=== PATIENT | female | born 1990 | race Caucasian/White ===

== ENCOUNTER → 2016-11-28 | Outpatient (CLI) | payer BC | END | disposition home or self-care (01) | LOC: LAB.O 11:51 | PROVIDERS: ATTEND Emergency Medicine | DX: Z13.220 Encounter for screening for lipoid disorders (principal) ==

== ENCOUNTER → 2017-04-21 | Outpatient (CLI) | payer BC | END | disposition home or self-care (01) | LOC: LAB.O 11:50 | PROVIDERS: ATTEND Emergency Medicine | DX: E78.5 Hyperlipidemia, unspecified (principal) ==

== ENCOUNTER 2017-07-02 09:52 | Emergency (ER) | payer BC ==
--- NOTE | 2017-07-02 10:34 | ED.PDOC ---
History of Present Illness - General Chief Complaint: Cardiovascular Problem Stated Complaint: heart racing Time Seen by Provider: 07/02/17 10:21 Source: patient Exam Limitations: no limitations - History of Present Illness Initial Comments: Sana Dominique 27 y/o female stated that she was sitting on her car on the parking lot this am and she had sudden onset of feeling that her heart was racing felt dizzy and nauseous,no chest pains.No previous episodes in the past. Timing/Duration: 1-3 hours Associated Symptoms: other - see hpi Allergies/Adverse Reactions: Allergies NO KNOWN ALLERGY Allergy (Verified 07/02/17 10:07) Home Medications: Ambulatory Orders Citalopram Hydrobromide [Celexa] 20 mg PO DAILY 09/24/14 Famotidine 20 mg PO DAILY #30 tab 03/19/16 Diclofenac [Zorvolex] 35 mg PO Q12HRS #20 cap 09/24/16 Tramadol HCl 50 mg PO Q6HRS #20 tab 09/24/16 Review of Systems - Review of Systems Constitutional: States: no symptoms reported EENTM: States: no symptoms reported Respiratory: States: no symptoms reported Cardiology: States: see HPI Gastrointestinal/Abdominal: States: no symptoms reported Genitourinary: States: no symptoms reported Past Medical History (General) - Patient Medical History Hx Seizures: No Hx Stroke: No Hx Dementia: No Hx Asthma: No Hx of COPD: No Hx Cardiac Disorders: No Hx Congestive Heart Failure: No Hx Pacemaker: No Hx Hypertension: No Hx Thyroid Disease: No Hx Diabetes: No Hx Gastroesophageal Reflux: No Hx Renal Disease: No Hx of HIV: No Hx MRSA: No Surgical History: no surgical history - Vaccination History Hx Influenza Vaccination: No Hx Pneumococcal Vaccination: No - Social History Hx Tobacco Use: Yes Hx Alcohol Use: Yes - socially Hx Depression: Yes - Female History Patient is a Female of Child Bearing Age (10 -59 yrs old): Yes Hx Last Menstrual Period: 07/02/17 Patient : No Family Medical History - Family History Father Family History: No Known Living Status: Still Living Hx Family Hypertension: Yes - several family members Hx Family Diabetes: Yes - several family members Hx Family;Other: Several family members have had kidney stones. Physical Exam - Physical Exam General Appearance: Alert, Anxious, No apparent distress Eye Exam: bilateral normal Ears, Nose, Throat: hearing grossly normal, normal ENT inspection Neck: non-tender, full range of motion, supple Respiratory: chest non-tender, lungs clear, normal breath sounds Cardiovascular/Chest: normal peripheral pulses, regular rate, rhythm, no gallop , no murmur Peripheral Pulses: radial,right: 1+, radial,left: 1+ Gastrointestinal/Abdominal: normal bowel sounds, non tender, soft, no organomegaly Back Exam: no vertebral tenderness Extremity: no pedal edema, no calf tenderness Neurologic: alert, normal mood/affect, oriented x 3 Skin Exam: normal color, warm/dry Lymphatic: no adenopathy Progress - Progress Progress: 07/02/17 10:37 Vital Signs - 8 hr 07/02/17 09:58 Temperature 98.0 F Pulse Rate [ 93 H pulse ox] Respiratory 20 Rate Blood Pressure 137/94 [Left Arm] O2 Sat by Pulse 96 Oximetry 07/02/17 12:08 Vital Signs - 8 hr 07/02/17 09:58 Temperature 98.0 F Pulse Rate [ 93 H pulse ox] Respiratory 20 Rate Blood Pressure 137/94 [Left Arm] O2 Sat by Pulse 96 Oximetry - Results/Orders Results/Orders: Laboratory Tests 07/02/17 07/02/17 07/02/17 10:35 10:35 10:35 WBC 7.8 RBC 5.00 Hgb 14.6 Hct 42.9 MCV 85.8 MCH 29.2 MCHC 34.0 RDW 12.9 Plt Count 322 MPV 8.4 Absolute Neuts (auto) 4.60 Absolute Lymphs (auto) 2.50 Absolute Monos (auto) 0.50 Absolute Eos (auto) 0.10 Absolute Basos (auto) 0.00 Neutrophils % 59.4 Lymphocytes % 32.4 Monocytes % 6.5 Eosinophils % 1.2 Basophils % 0.5 D-Dimer, Quantitative < 200 Sodium 138 Potassium 4.3 Chloride 105 Carbon Dioxide 26 Anion Gap 11.3 L BUN 10 Creatinine 0.52 L BUN/Creatinine Ratio 19.2 Random Glucose 121 H Serum Osmolality 276.0 Calcium 9.3 Total Bilirubin 0.2 AST 43 H ALT 61 H Alkaline Phosphatase 82 Troponin I Serum Total Protein 7.9 Albumin 4.2 Globulin 3.7 H Albumin/Globulin Ratio 1.1 07/02/17 10:35 WBC RBC Hgb Hct MCV MCH MCHC RDW Plt Count MPV Absolute Neuts (auto) Absolute Lymphs (auto) Absolute Monos (auto) Absolute Eos (auto) Absolute Basos (auto) Neutrophils % Lymphocytes % Monocytes % Eosinophils % Basophils % D-Dimer, Quantitative Sodium Potassium Chloride Carbon Dioxide Anion Gap BUN Creatinine BUN/Creatinine Ratio Random Glucose Serum Osmolality Calcium Total Bilirubin AST ALT Alkaline Phosphatase Troponin I < 0.02 Serum Total Protein Albumin Globulin Albumin/Globulin Ratio - EKG/XRAY/CT EKG: Sinus, nonspecific ST T wave Chg Comments: HR 75 Departure - Departure Clinical Impression: Heart palpitations Time of Disposition: 12:14 Disposition: Discharge to Home or Self Care Condition: Good Departure Forms: ED Discharge - Pt. Copy, Patient Portal Self Enrollment Instructions: DI for Palpitations Referrals: MAYRA PHAM [Primary Care Provider] - 1-2 Weeks Home Medications: Ambulatory Orders Citalopram Hydrobromide [Celexa] 20 mg PO DAILY 09/24/14 Famotidine 20 mg PO DAILY #30 tab 03/19/16 Diclofenac [Zorvolex] 35 mg PO Q12HRS #20 cap 09/24/16 Tramadol HCl 50 mg PO Q6HRS #20 tab 09/24/16 Additional Instructions: Follow up with primary md 07/03/2017 patient to call for appointment
--- NOTE | 2017-07-02 10:48 | RAD ---
EXAM DESCRIPTION: Chest,2 Views CLINICAL HISTORY: 27 years,Female,palpitations COMPARISON: March 18 FINDINGS: There are no consolidations. No effusions. No pneumothoraces. No nodules. Bony elements unremarkable for age. IMPRESSION: Unremarkable chest for age stable Electronically signed by: Usman Cope MD 07/02/2017 10:47 AM CDT
[2017-07-02 12:15] VITALS: TEMP 97.6
[2017-07-02 12:24] VITALS: BP 113/80; O2SAT 98
== END 2017-07-02 12:23 | disposition home or self-care (01) ==
LOC: ER 09:52
DX: R00.2 Palpitations (principal); Z87.891 Personal history of nicotine dependence

== ENCOUNTER 2017-09-04 03:45 | Emergency (ER) | payer BC ==
[2017-09-04 03:59] VITALS: TEMP 97.3
--- NOTE | 2017-09-04 04:06 | ED.PDOC ---
History of Present Illness - General Chief Complaint: ENT Problem Stated Complaint: sore throat, bilateral ear pain, coughing Time Seen by Provider: 09/04/17 03:59 Source: patient, RN notes reviewed, Vital Signs reviewed Exam Limitations: no limitations - History of Present Illness Initial Comments: Patient presents to the ER with c/o sore throat X 1 weeks. Reports it is just getting worse and woke her from sleep. Unknown fever but + chills. Hurts to swallow. + cough. Timing/Duration: gradual, last week Severity: severe EENT Location: throat Prearrival Treatment: over the counter meds Improving Factors: nothing Worsening Factors: other - swallowing Associated Symptoms: cough, sinus infection Allergies/Adverse Reactions: Allergies NO KNOWN ALLERGY Allergy (Verified 09/04/17 03:59) Home Medications: Ambulatory Orders Amoxicillin [Amoxil] 500 mg PO TID #30 cap 09/04/17 Review of Systems - Review of Systems Constitutional: States: chills, malaise. Denies: fever EENTM: States: see HPI, ear pain, throat pain. Denies: nose congestion Respiratory: States: see HPI, cough. Denies: short of breath Cardiology: States: no symptoms reported Gastrointestinal/Abdominal: States: no symptoms reported Musculoskeletal: States: no symptoms reported Skin: States: no symptoms reported Neurological: States: no symptoms reported All other Systems: No Change from Baseline Past Medical History (General) - Patient Medical History Hx Seizures: No Hx Stroke: No Hx Dementia: No Hx Asthma: No Hx of COPD: No Hx Cardiac Disorders: No Hx Congestive Heart Failure: No Hx Pacemaker: No Hx Hypertension: No Hx Thyroid Disease: No Hx Diabetes: No Hx Gastroesophageal Reflux: No Hx Renal Disease: No Hx of HIV: No Hx MRSA: No Surgical History: no surgical history - Vaccination History Hx Tetanus, Diphtheria Vaccination: No Hx Influenza Vaccination: No Hx Pneumococcal Vaccination: No - Social History Hx Tobacco Use: Yes Hx Chewing Tobacco Use: No Hx Alcohol Use: Yes - socially Hx Substance Use: No Hx Substance Use Treatment: No Hx Depression: Yes Feels Threatened In Home Enviroment: No Feels Threatened In a Relationship: No Hx Physical Abuse: No Hx Emotional Abuse: No Hx Suspected Abuse: No - Female History Hx Last Menstrual Period: 07/02/17 Patient : No Family Medical History - Family History Father Family History: No Known Living Status: Still Living Hx Family Hypertension: Yes - several family members Hx Family Diabetes: Yes - several family members Hx Family;Other: Several family members have had kidney stones. Physical Exam - Physical Exam General Appearance: Alert, Comfortable, No apparent distress, Obese, Well Developed, Well Groomed, Well Hydrated, Well Nourished Eye Exam: bilateral normal Ear Exam: bilateral ear: auricle normal, canal normal, TM normal Nasal Exam: normal inspection Throat Exam: normal mouth inspection, pharynx normal Neck: full range of motion, supple, normal inspection Cardiovascular/Respiratory: regular rate, rhythm, no M/R/G, normal breath sounds , no respiratory distress Neurologic: no motor/sensory deficits, alert, normal mood/affect Skin Exam: normal color, warm/dry Comments: Vital Signs 09/04/17 03:50 Temperature 97.3 F L Pulse Rate [ 83 monitor] Respiratory 16 Rate Blood Pressure 133/81 [Left Arm] O2 Sat by Pulse 97 Oximetry Progress - Progress Progress: 09/04/17 04:27 Will give Solu-Medrol 125mg IM and Amoxicillin 875mg PO - Results/Orders Results/Orders: Laboratory Tests 09/04/17 04:10 Group A Strep DNA Negative Departure - Departure Clinical Impression: Pharyngitis Qualifiers: Pharyngitis/tonsillitis etiology: unspecified etiology Qualified Code(s): J02.9 - Acute pharyngitis, unspecified Time of Disposition: 04:28 Disposition: Discharge to Home or Self Care Condition: Good Departure Forms: ED Discharge - Pt. Copy, Patient Portal Self Enrollment Instructions: DI for Pharyngitis/Tonsillopharyngitis -- Adult Diet: resume usual diet Activity: increase activity as tolerated Referrals: MAYRA PHAM [Primary Care Provider] - 1-2 Weeks Prescriptions: Amoxicillin [Amoxil] 500 mg PO TID #30 cap Home Medications: Ambulatory Orders Amoxicillin [Amoxil] 500 mg PO TID #30 cap 09/04/17
[2017-09-04] MEDS ORDERED: AMOXICILLIN TRIHYDRATE 875 MG TAB PO ONE (04:27)
[2017-09-04] MEDS ORDERED: methylPREDNISolone SODIUM SUC 125 MG/2 ML VIAL IM ONE (04:27)
[2017-09-04] MEDS ORDERED: AMOXICILLIN TRIHYDRATE 500 MG PO ONE (04:30)
[2017-09-04 04:59] VITALS: BP 129/78; O2SAT 98
== END 2017-09-04 04:59 | disposition home or self-care (01) ==
LOC: ER 03:45
DX: J02.9 Acute pharyngitis, unspecified (principal); Z87.891 Personal history of nicotine dependence
CPT/HCPCS: 87070; 87651; J2930

== ENCOUNTER 2017-12-26 10:31 | Emergency (ER) | payer BC ==
--- NOTE | 2017-12-26 10:40 | ED.PDOC ---
History of Present Illness - General Chief Complaint: Abdominal Pain Stated Complaint: lower abdominal pain Time Seen by Provider: 12/26/17 10:39 Information Source: patient Exam Limitations: no limitations - History of Present Illness Initial Comments: Sana Dominique 27 y/o female stated woke up tis morning with stabbing lower abdominal pain non radiating aggravated by trying to have bowel movement this am.No diarrhea no constipation no n/v.Stated got worse decided to come to er.No vaginal bleeding had short episode of sob but better .Done home test yesterday negative since no periods for a monthy. Abdominal Pain Onset Location: suprapubic Pain Radiation: no radiation Quality: steady, stabbing Timing/Duration: 7-24 hours Improving Factors: nothing Worsening Factors: nothing Associated Symptoms: denies symptoms Review of Systems - Review of Systems Constitutional: States: no symptoms reported EENTM: States: no symptoms reported Respiratory: States: no symptoms reported Cardiology: States: no symptoms reported Gastrointestinal/Abdominal: States: see HPI Genitourinary: States: no symptoms reported All other Systems: Reviewed and Negative, No Change from Baseline Past Medical History (General) - Patient Medical History Hx Seizures: No Hx Stroke: No Hx Dementia: No Hx Asthma: No Hx of COPD: No Hx Cardiac Disorders: No Hx Congestive Heart Failure: No Hx Pacemaker: No Hx Hypertension: No Hx Thyroid Disease: No Hx Diabetes: No Hx Gastroesophageal Reflux: No Hx Renal Disease: No Hx of HIV: No Hx MRSA: No Surgical History: no surgical history - Vaccination History Hx Tetanus, Diphtheria Vaccination: No Hx Influenza Vaccination: No Hx Pneumococcal Vaccination: No - Social History Hx Tobacco Use: Yes Hx Chewing Tobacco Use: No Hx Alcohol Use: Yes - socially Hx Substance Use: No Hx Substance Use Treatment: No Hx Depression: Yes Hx Physical Abuse: No Hx Emotional Abuse: No Hx Suspected Abuse: No - Female History Patient is a Female of Child Bearing Age (10 -59 yrs old): Yes Hx Last Menstrual Period: 11/24/17 Patient : No Family Medical History - Family History Father Family History: No Known Living Status: Still Living Hx Family Hypertension: Yes - several family members Hx Family Diabetes: Yes - several family members Hx Family;Other: Several family members have had kidney stones. Physical Exam - Physical Exam General Appearance: Alert, Comfortable, No apparent distress Eyes, Ears, Nose, Throat Exam: normal ENT inspection Neck: non-tender, supple Respiratory: chest non-tender, lungs clear, normal breath sounds Cardiovascular/Chest: normal peripheral pulses, regular rate, rhythm, no murmur Peripheral Pulses: No deficit Gastrointestinal/Abdominal: soft, tenderness - lower abdomen no peritoneal signs Back Exam: no CVA tenderness, no vertebral tenderness Extremity: no pedal edema, no calf tenderness Neurologic: alert, oriented x 3 Skin Exam: normal color, warm/dry Progress - Progress Progress: 12/26/17 10:56 Vital Signs - 24 hr 12/26/17 10:37 Temperature 97.5 F L Pulse Rate [ 91 H left brachial] Respiratory 24 Rate Blood Pressure 140/84 [left brachial] O2 Sat by Pulse 94 L Oximetry - Results/Orders Results/Orders: 12/26/17 10:41 IV Care:Saline Lock per Protoc QSHIFT 12/26/17 11:34 Hold Metformin x 48Hrs [id number] Laboratory Results - last 24 hr 12/26/17 12/26/17 12/26/17 11:03 11:06 11:06 WBC 10.5 RBC 4.82 Hgb 14.2 Hct 41.1 MCV 85.2 MCH 29.5 MCHC 34.6 RDW 12.6 Plt Count 343 MPV 8.5 Absolute Neuts (auto) 6.70 Absolute Lymphs (auto) 3.00 Absolute Monos (auto) 0.70 Absolute Eos (auto) 0.10 Absolute Basos (auto) 0.10 Neutrophils % 63.7 Lymphocytes % 28.1 Monocytes % 6.4 Eosinophils % 1.2 Basophils % 0.6 Sodium 133 L Potassium 4.2 Chloride 103 Carbon Dioxide 21 Anion Gap 13.2 BUN 14 Creatinine 0.50 L BUN/Creatinine Ratio 28.0 H Random Glucose 120 H Serum Osmolality 268.0 L Calcium 9.5 Total Bilirubin 0.7 AST 23 ALT 38 Alkaline Phosphatase 91 Serum Total Protein 7.5 Albumin 3.9 Globulin 3.6 H Albumin/Globulin Ratio 1.1 Serum HCG, Qual Urine Color Yellow Urine Appearance Clear Urine pH 5.5 Ur Specific [place] 1.020 Urine Protein Negative Urine Glucose (UA) Negative Urine Ketones Negative Urine Blood Negative Urine Nitrite Negative Urine Bilirubin Negative Urine Urobilinogen 0.2 Ur Leukocyte Esterase Negative Urine RBC 1-3 Urine WBC 1-3 Ur Epithelial Cells 1-3 Urine Bacteria 0 12/26/17 11:06 WBC RBC Hgb Hct MCV MCH MCHC RDW Plt Count MPV Absolute Neuts (auto) Absolute Lymphs (auto) Absolute Monos (auto) Absolute Eos (auto) Absolute Basos (auto) Neutrophils % Lymphocytes % Monocytes % Eosinophils % Basophils % Sodium Potassium Chloride Carbon Dioxide Anion Gap BUN Creatinine BUN/Creatinine Ratio Random Glucose Serum Osmolality Calcium Total Bilirubin AST ALT Alkaline Phosphatase Serum Total Protein Albumin Globulin Albumin/Globulin Ratio Serum HCG, Qual Negative Urine Color Urine Appearance Urine pH Ur Specific [place] Urine Protein Urine Glucose (UA) Urine Ketones Urine Blood Urine Nitrite Urine Bilirubin Urine Urobilinogen Ur Leukocyte Esterase Urine RBC Urine WBC Ur Epithelial Cells Urine Bacteria - EKG/XRAY/CT CT Ordered: Yes - abd /pelvis-no acute abnormality Departure - Departure Clinical Impression: Abdominal pain Qualifiers: Abdominal location: lower abdomen, unspecified Qualified Code(s): R10.30 - Lower abdominal pain, unspecified Time of Disposition: 12:19 Disposition: Discharge to Home or Self Care Condition: Good Departure Forms: ED Discharge - Pt. Copy, Patient Portal Self Enrollment Instructions: DI for Abdominal Pain-Adult Referrals: MAYRA PHAM [Primary Care Provider] - 1-2 Weeks Home Medications: Ambulatory Orders Cholesterol Med 1 ea PO DAILY 12/26/17 Norgestimate-Ethinyl Estradiol [Tri-Sprintec 0.18/0.215/0.25 mg-35 Mcg] 1 each PO DAILY 12/26/17 Additional Instructions: Follow up with primary Md 29 December 2017;May take ALEVE 1-2 tablets am/pm for pain as needed
[2017-12-26] MEDS ORDERED: LACTATED RINGERS 1,000 ML IVS ONE (10:41)
--- NOTE | 2017-12-26 12:07 | CT ---
EXAM DESCRIPTION: CT abdomen and pelvis with contrast CLINICAL HISTORY: Abdomen pain COMPARISON: None Available. TECHNIQUE: Spiral CT with multiplanar reformatted images. Intravenous iodinated nonionic contrast This exam was performed according to our departmental dose-optimization program, which includes automated exposure control, adjustment of the mA and/or kV according to patient size and/or use of iterative reconstruction technique. FINDINGS: There is minimal free fluid lower right paracolic gutter adjacent to the cecum. The appendix extends medially from the cecum best seen on coronal reformat image 73 through 75. This courses towards the right adnexa. The appendix is nondistended and there is no inflammation immediately around the appendix The appearance of the adnexa bilaterally is consistent with physiologic change with minimal adjacent fluid. No abnormality of the uterus There is no mass lesion or inflammatory process seen in the stomach, small or large intestine Visualized lung bases are clear. Heart size normal Mild diffuse fatty infiltration of the liver. No focal abnormality. Gallbladder normal. No biliary duct dilation Spleen, pancreas, adrenal glands and kidneys are normal No bony abnormality IMPRESSION: No diagnostic evidence of appendicitis. The visualized appendix is normal in caliber without surrounding inflammation There is a small volume of fluid adjacent to the cecum in the lower right paracolic gutter/right adnexa which may be physiologic related to the right ovary, possibly a cyst or follicle rupture Electronically signed by: Mono Alcantar MD 12/26/2017 12:06 PM CDT
[2017-12-26] MEDS ORDERED: PROMETHAZINE HCL INJ 25 MG/ML VIAL IM ONE (12:20)
[2017-12-26] MEDS ORDERED: MORPHINE SULFATE INJ 10 MG/ML VIAL IV ONE (12:20)
[2017-12-26 13:33] VITALS: BP 128/78; TEMP 97; O2SAT 98
== END 2017-12-26 13:45 | disposition home or self-care (01) ==
LOC: ER 10:31
DX: R10.30 Lower abdominal pain, unspecified (principal)
CPT/HCPCS: 36416; 74177; 80053; 81001; 84703; 85025; J2270; J2550; J7120

== ENCOUNTER 2018-01-10 19:16 | Emergency (ER) | payer BC ==
[2018-01-10 19:20] VITALS: TEMP 99.6
--- NOTE | 2018-01-10 20:30 | ED.PDOC ---
History of Present Illness - General Chief Complaint: Respiratory Problem Stated Complaint: Shortness of breath Time Seen by Provider: 01/10/18 19:33 Source: patient Exam Limitations: no limitations - History of Present Illness Initial Comments: he patient is a 27-year-old female presenting to the emergency room secondary to acute onset shortness of breath. She was making Easter eggs when this developed. She has recently been hospitalized with her primary care doctor and diagnosed with anxiety. Apparently quite a few studies have been done on her at her primary care doctor's Hospital and workup including a cardiac workup with echocardiogram and she thinks a CT scan. She thinks that she wore a heart monitor for a period of time. She was recently started on Xanax and BuSpar. She reports that most of her episodes of shortness of breath occur when she goes to lie back. She does have a long-standing history of reflux. No vomiting. No history of asthma. No chest pain. Timing/Duration: 1/2 hour Severity: moderate Improving Factors: nothing Worsening Factors: nothing Associated Symptoms: denies symptoms Allergies/Adverse Reactions: Allergies NO KNOWN ALLERGY Allergy (Verified 12/26/17 10:48) Home Medications: Ambulatory Orders Cholesterol Med 1 ea PO DAILY 12/26/17 Norgestimate-Ethinyl Estradiol [Tri-Sprintec 0.18/0.215/0.25 mg-35 Mcg] 1 each PO DAILY 12/26/17 Sucralfate Tab [Carafate Tab] 1 gm PO QID #120 tab 01/10/18 Review of Systems - Review of Systems Constitutional: States: no symptoms reported EENTM: States: no symptoms reported Respiratory: States: see HPI Cardiology: States: no symptoms reported Gastrointestinal/Abdominal: States: no symptoms reported Genitourinary: States: no symptoms reported Musculoskeletal: States: no symptoms reported Skin: States: no symptoms reported Neurological: States: anxiety Endocrine: States: no symptoms reported All other Systems: No Change from Baseline Past Medical History (General) - Patient Medical History Hx Seizures: No Hx Stroke: No Hx Dementia: No Hx Asthma: No Hx of COPD: No Hx Cardiac Disorders: Yes - Hypercholesterolemia Hx Congestive Heart Failure: No Hx Pacemaker: No Hx Hypertension: No Hx Thyroid Disease: No Hx Diabetes: No Hx Gastroesophageal Reflux: No Hx Renal Disease: No Hx of HIV: No Hx MRSA: No - Vaccination History Hx Tetanus, Diphtheria Vaccination: No Hx Influenza Vaccination: No Hx Pneumococcal Vaccination: No - Social History Hx Tobacco Use: Yes Hx Chewing Tobacco Use: No Hx Alcohol Use: Yes - socially Hx Substance Use: No Hx Substance Use Treatment: No Hx Depression: Yes Hx Physical Abuse: No Hx Emotional Abuse: No Hx Suspected Abuse: No - Female History Patient is a Female of Child Bearing Age (10 -59 yrs old): Yes Hx Last Menstrual Period: 11/24/17 Patient : No Family Medical History - Family History Father Family History: No Known Living Status: Still Living Hx Family Hypertension: Yes - several family members Hx Family Diabetes: Yes - several family members Hx Family;Other: Several family members have had kidney stones. Physical Exam - Physical Exam General Appearance: Alert, Anxious Eye Exam: bilateral normal Ears, Nose, Throat: hearing grossly normal, normal ENT inspection, normal pharynx Neck: full range of motion, supple Respiratory: lungs clear, normal breath sounds, no respiratory distress, no accessory muscle use Cardiovascular/Chest: normal peripheral pulses, regular rate, rhythm, no edema Peripheral Pulses: radial,right: 2+, radial,left: 2+, dorsalis pedis,right: 2+, dorsalis pedis,left: 2+ Gastrointestinal/Abdominal: non tender, soft Rectal Exam: deferred Back Exam: normal inspection, no CVA tenderness Extremity: normal range of motion, non-tender, normal inspection, no pedal edema , normal capillary refill 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 She did take a Xanax before coming up here and she has improved in a timeframe consistent with treatment of an anxiety attack. She has apparently already undergone a fairly extensive workup with her primary care doctor, the details of which I do not have. given the description of some of her attacks it may be beneficial for her to see gastroenterology for workup of possible esophageal pathology including dysmotility or Zenker's diverticulum. The patient should follow-up with her primary care doctor in 2-3 days for reevaluation. In the short-term I'm going to place her on Carafate 4 times daily. ER warnings were given. - Results/Orders Results/Orders: 01/10/18 19:35 Telemetry .CONTINUOUS Laboratory Results - last 24 hr 01/10/18 01/10/18 01/10/18 19:44 19:44 19:44 WBC 10.3 RBC 4.69 Hgb 13.8 Hct 40.1 MCV 85.5 MCH 29.4 MCHC 34.4 RDW 12.6 Plt Count 353 MPV 8.5 Absolute Neuts (auto) 6.40 Absolute Lymphs (auto) 2.80 Absolute Monos (auto) 0.90 H Absolute Eos (auto) 0.10 Absolute Basos (auto) 0.00 Neutrophils % 62.2 Lymphocytes % 27.5 Monocytes % 9.0 Eosinophils % 0.9 L Basophils % 0.4 D-Dimer, Quantitative < 200 Sodium 141 Potassium 3.9 Chloride 110 Carbon Dioxide 24 Anion Gap 10.9 L BUN 11 Creatinine 0.61 BUN/Creatinine Ratio 18.0 Random Glucose 110 H Serum Osmolality 281.3 Calcium 9.6 Magnesium 1.9 Total Bilirubin 0.4 AST 56 H ALT 108 H Alkaline Phosphatase 91 Creatine Kinase 62 CK-MB (CK-2) 0.8 CK-MB (CK-2) % Not Reportable Troponin I < 0.02 B-Natriuretic Peptide < 5.0 Serum Total Protein 7.5 Albumin 4.3 Globulin 3.2 Albumin/Globulin Ratio 1.3 TSH 1.92 Serum HCG, Qual 01/10/18 19:44 WBC RBC Hgb Hct MCV MCH MCHC RDW Plt Count MPV Absolute Neuts (auto) Absolute Lymphs (auto) Absolute Monos (auto) Absolute Eos (auto) Absolute Basos (auto) Neutrophils % Lymphocytes % Monocytes % Eosinophils % Basophils % D-Dimer, Quantitative Sodium Potassium Chloride Carbon Dioxide Anion Gap BUN Creatinine BUN/Creatinine Ratio Random Glucose Serum Osmolality Calcium Magnesium Total Bilirubin AST ALT Alkaline Phosphatase Creatine Kinase CK-MB (CK-2) CK-MB (CK-2) % Troponin I B-Natriuretic Peptide Serum Total Protein Albumin Globulin Albumin/Globulin Ratio TSH Serum HCG, Qual Negative Departure - Departure Clinical Impression: Anxiety attack Gastroesophageal reflux disease Qualifiers: Esophagitis presence: esophagitis presence not specified Qualified Code(s): K21.9 - Gastro-esophageal reflux disease without esophagitis Disposition: Discharge to Home or Self Care Condition: Fair Departure Forms: ED Discharge - Pt. Copy, Patient Portal Self Enrollment Instructions: Anxiety and Panic Attacks (Alternative Therapy) Diet: bland diet Activity: increase activity as tolerated Referrals: MAYRA PHAM [Primary Care Provider] - 1-2 Weeks Prescriptions: Sucralfate Tab [Carafate Tab] 1 gm PO QID #120 tab Home Medications: Ambulatory Orders Cholesterol Med 1 ea PO DAILY 12/26/17 Norgestimate-Ethinyl Estradiol [Tri-Sprintec 0.18/0.215/0.25 mg-35 Mcg] 1 each PO DAILY 12/26/17 Sucralfate Tab [Carafate Tab] 1 gm PO QID #120 tab 01/10/18 Additional Instructions: the patient is a 27-year-old female presenting to the emergency room secondary to recurrent episodes of acute onset shortness of breath. She did take a Xanax before coming up here and she has improved in a timeframe consistent with treatment of an anxiety attack. She has apparently already undergone a fairly extensive workup with her primary care doctor, the details of which I do not have. given the description of some of her attacks it may be beneficial for her to see gastroenterology for workup of possible esophageal pathology including dysmotility or Zenker's diverticulum. The patient should follow-up with her primary care doctor in 2-3 days for reevaluation. In the short-term I'm going to place her on Carafate 4 times daily As she does definitely have symptomatic reflux issues. ER warnings were given.
[2018-01-10 20:50] VITALS: BP 128/84; O2SAT 99
== END 2018-01-10 20:51 | disposition home or self-care (01) ==
LOC: ER 19:16
DX: F41.0 Panic disorder [episodic paroxysmal anxiety] (principal); K21.9 Gastro-esophageal reflux disease without esophagitis; E78.00 Pure hypercholesterolemia, unspecified

== ENCOUNTER 2019-08-03 09:00 | Emergency (ER) | payer BC ==
--- NOTE | 2019-08-03 09:18 | ED.PDOC ---
History of Present Illness - General Chief Complaint: Respiratory Problem Stated Complaint: cough,fever,dizziness Time Seen by Provider: 08/03/19 09:06 - History of Present Illness Comments: 29 yo F PMH HTN Anxiety/Depression (Denies hallucinations SI/HI without suicide plan) presents to ED c/o cough sore throat and nausea without vomiting with home sick contacts of son and Mother who is at bedside x 1 week. Reports fever chills denies vomiting diarrhea chest pain sob diaphoresis. Symptoms are disturbing rest and appetite no change in bowel or bladder. Has PMD Dr. Reyna for follow up denies smoking admits very occasional drinking admits FH HTN DM no other c/o today. Allergies/Adverse Reactions: Allergies NO KNOWN ALLERGY Allergy (Verified 12/26/17 10:48) Home Medications: Ambulatory Orders Acetaminophen [Tylenol] 650 mg PO Q6H PRN #30 tab 08/03/19 Amoxicillin & Pot Clavulanate [Augmentin Tab] 875 mg PO BID 10 Days #20 tab 08/03/19 Hydrochlorothiazide 25 mg PO DAILY 08/03/19 Ibuprofen 600 mg PO Q6H PRN #20 tab 08/03/19 Norgestimate-Ethinyl Estradiol [Tri-Sprintec] 1 tab PO DAILY 08/03/19 Phentermine HCl 37.5 mg PO DAILY 08/03/19 Prednisone 40 mg PO DAILY 5 Days #10 tab 08/03/19 Sertraline HCl 50 mg PO DAILY 08/03/19 Review of Systems - Review of Systems Constitutional: States: chills, fever EENTM: States: throat pain Respiratory: States: cough Cardiology: States: no symptoms reported Gastrointestinal/Abdominal: States: nausea Genitourinary: States: no symptoms reported Musculoskeletal: States: no symptoms reported Skin: States: no symptoms reported Neurological: States: no symptoms reported Endocrine: States: no symptoms reported Hematologic/Lymphatic: States: no symptoms reported All other Systems: Reviewed and Negative Past Medical History (General) - Patient Medical History Hx Seizures: No Hx Stroke: No Hx Dementia: No Hx Asthma: No Hx of COPD: No Hx Cardiac Disorders: Yes - Hypercholesterolemia Hx Congestive Heart Failure: No Hx Pacemaker: No Hx Hypertension: No Hx Thyroid Disease: No Hx Diabetes: No Hx Gastroesophageal Reflux: No Hx Renal Disease: No Hx of HIV: No Hx MRSA: No - Vaccination History Hx Tetanus, Diphtheria Vaccination: No Hx Influenza Vaccination: No Hx Pneumococcal Vaccination: No - Social History Hx Tobacco Use: Yes Hx Chewing Tobacco Use: No Hx Alcohol Use: Yes - socially Hx Substance Use: No Hx Substance Use Treatment: No Hx Depression: Yes Hx Physical Abuse: No Hx Emotional Abuse: No Hx Suspected Abuse: No - Female History Hx Last Menstrual Period: 11/24/17 Patient : No Family Medical History - Family History Father Family History: No Known Living Status: Still Living Hx Family Hypertension: Yes - several family members Hx Family Diabetes: Yes - several family members Hx Family;Other: Several family members have had kidney stones. 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 Skin Exam: normal color Progress - Progress Progress: 08/03/19 09:21 A/P-Pharyngitis Cough URI Right Knee Pain-IV Bolus tylenol decadron duoneb flu strep swabs cxr cbc cmp lipase upreg if unremarkable d/c follow up pcp referral tylenol ibuprofen prednisone augmentin for the pharyngitis 08/03/19 09:23 - Results/Orders Results/Orders: Laboratory Tests 08/03/19 08/03/19 08/03/19 09:20 09:30 09:30 WBC 6.7 RBC 4.83 Hgb 14.2 Hct 40.8 MCV 84.4 MCH 29.4 MCHC 34.8 RDW 13.2 Plt Count 262 MPV 8.8 Absolute Neuts (auto) 3.50 Absolute Lymphs (auto) 2.00 Absolute Monos (auto) 0.80 Absolute Eos (auto) 0.30 Absolute Basos (auto) 0.00 Neutrophils % 52.5 Lymphocytes % 29.7 Monocytes % 12.2 H Eosinophils % 4.9 Basophils % 0.7 Sodium 136 Potassium 3.6 Chloride 100 L Carbon Dioxide 20 L Anion Gap 19.6 H BUN 15 Creatinine 0.61 BUN/Creatinine Ratio 24.6 H Random Glucose 101 Serum Osmolality 272.9 L Calcium 8.8 Total Bilirubin 0.5 AST 31 ALT 33 Alkaline Phosphatase 78 Serum Total Protein 7.9 Albumin 4.0 Globulin 3.9 H Albumin/Globulin Ratio 1.0 L Lipase 36 Serum HCG, Qual Negative Group A Strep Rapid 08/03/19 09:30 WBC RBC Hgb Hct MCV MCH MCHC RDW Plt Count MPV Absolute Neuts (auto) Absolute Lymphs (auto) Absolute Monos (auto) Absolute Eos (auto) Absolute Basos (auto) Neutrophils % Lymphocytes % Monocytes % Eosinophils % Basophils % Sodium Potassium Chloride Carbon Dioxide Anion Gap BUN Creatinine BUN/Creatinine Ratio Random Glucose Serum Osmolality Calcium Total Bilirubin AST ALT Alkaline Phosphatase Serum Total Protein Albumin Globulin Albumin/Globulin Ratio Lipase Serum HCG, Qual Group A Strep Rapid Positive EXAM DESCRIPTION: Chest,2 Views CLINICAL HISTORY: cough r/o pneumonia COMPARISON: July 02, 2017 FINDINGS: The cardiomediastinal silhouette is unremarkable. There is no airspace consolidation or pleural effusion. The bronchovascular markings are within normal limits, and the lungs are not hyperin flated. There is no pneumothorax or acute fracture. IMPRESSION: No pneumonia or other acute intrathoracic abnormality to explain cough. Electronically signed by: Lit Cai MD 08/03/2019 10:22 AM CDT EXAM DESCRIPTION: Knee,Right 1 or 2 Views CLINICAL HISTORY: 29 years Female, pain COMPARISON: None. FINDINGS: Two views of the right knee show no acute fracture or malalignment. No significant joint space narrowing. No joint effusion. No soft tissue abnormality. IMPRESSION: Negative exam. Electronically signed by: Lit Cai MD 08/03/2019 10:20 AM CDT Departure - Departure Clinical Impression: Cough Pharyngitis Qualifiers: Pharyngitis/tonsillitis etiology: streptococcus Qualified Code(s): J02.0 - Streptococcal pharyngitis Upper respiratory infection Qualifiers: URI type: acute pharyngitis Pharyngitis/tonsillitis etiology: streptococcus Qualified Code(s): J02.0 - Streptococcal pharyngitis Right knee pain Qualifiers: Chronicity: unspecified Qualified Code(s): M25.561 - Pain in right knee Time of Disposition: 10:43 Disposition: Discharge to Home or Self Care Condition: Good Departure Forms: ED Discharge - Pt. Copy, Patient Portal Self Enrollment Instructions: Sore Throat, Adult (DC) Diet: resume usual diet Referrals: MAYRA REYNA [Primary Care Provider] - 1-2 Weeks Prescriptions: Acetaminophen [Tylenol] 650 mg PO Q6H PRN #30 tab PRN Reason: Pain Amoxicillin & Pot Clavulanate [Augmentin Tab] 875 mg PO BID 10 Days #20 tab Ibuprofen 600 mg PO Q6H PRN #20 tab PRN Reason: Pain Prednisone 40 mg PO DAILY 5 Days #10 tab Home Medications: Ambulatory Orders Acetaminophen [Tylenol] 650 mg PO Q6H PRN #30 tab 08/03/19 Amoxicillin & Pot Clavulanate [Augmentin Tab] 875 mg PO BID 10 Days #20 tab 08/03/19 Hydrochlorothiazide 25 mg PO DAILY 08/03/19 Ibuprofen 600 mg PO Q6H PRN #20 tab 08/03/19 Norgestimate-Ethinyl Estradiol [Tri-Sprintec] 1 tab PO DAILY 08/03/19 Phentermine HCl 37.5 mg PO DAILY 08/03/19 Prednisone 40 mg PO DAILY 5 Days #10 tab 08/03/19 Sertraline HCl 50 mg PO DAILY 08/03/19
[2019-08-03] MEDS: IPRATROPIUM/ALBUTEROL 3 ML VIAL NEB ONE (09:30)
[2019-08-03] MEDS: SODIUM CHLORIDE 0.9% 1000ML 1,000 ML IVS ONE (09:41)
[2019-08-03] MEDS: ONDANSETRON INJ 4 MG/2 ML VIAL IV ONE (09:43)
[2019-08-03] MEDS: DEXAMETHASONE INJ 10 MG/ML VIAL IV ONE (09:44)
[2019-08-03] MEDS: ACETAMINOPHEN 500 MG TAB PO ONE (09:48)
[2019-08-03] MEDS ORDERED: cefTRIAXone SODIUM 1 GM VIAL ONE (10:18)
[2019-08-03] MEDS ORDERED: SODIUM CHL 0.9% 50ML MIN-BAG+ 50 ML IVPB ONE (10:18)
--- NOTE | 2019-08-03 10:21 | RAD ---
EXAM DESCRIPTION: Knee,Right 1 or 2 Views CLINICAL HISTORY: 29 years Female, pain COMPARISON: None. FINDINGS: Two views of the right knee show no acute fracture or malalignment. No significant joint space narrowing. No joint effusion. No soft tissue abnormality. IMPRESSION: Negative exam. Electronically signed by: Lit Cai MD 08/03/2019 10:20 AM CDT
[2019-08-03] MEDS: cefTRIAXone SODIUM 1 GM in SODIUM CHL 0.9% 50ML MIN-BAG+ 50 ML IVPB ONE (10:22)
--- NOTE | 2019-08-03 10:23 | RAD ---
EXAM DESCRIPTION: Chest,2 Views CLINICAL HISTORY: cough r/o pneumonia COMPARISON: July 02, 2017 FINDINGS: The cardiomediastinal silhouette is unremarkable. There is no airspace consolidation or pleural effusion. The bronchovascular markings are within normal limits, and the lungs are not hyperinflated. There is no pneumothorax or acute fracture. IMPRESSION: No pneumonia or other acute intrathoracic abnormality to explain cough. Electronically signed by: Lit Cai MD 08/03/2019 10:22 AM CDT
[2019-08-03 11:16] VITALS: BP 120/71; TEMP 96.4; O2SAT 100
== END 2019-08-03 11:16 | disposition home or self-care (01) ==
LOC: ER 09:00
DX: J02.0 Streptococcal pharyngitis (principal); M25.561 Pain in right knee; F32.9 Major depressive disorder, single episode, unspecified; E78.00 Pure hypercholesterolemia, unspecified; Z87.891 Personal history of nicotine dependence
CPT/HCPCS: 36415; 71046; 73560; 80053; 83690; 84703; 85025; 87804; 87880; 94640; J0696; J1100; J2405; J7030; J7050; J7620